=== PATIENT | male | born 1970 | race Caucasian/White ===

== ENCOUNTER → 2017-03-19 | Outpatient (CLI) | payer OTHER ==
[2017-03-19 10:50] LABS: COMPLEMENT C3 84.5 MG/DL (90-180); COMPLEMENT C4 19.4 MG/DL (10-40); IMMUNOGLOBULIN G 1130 MG/DL (681-1648); IMMUNOGLOBULIN M 106 MG/DL (40-230)
[2017-03-23 00:06] LABS: ALPHA 1 ANTITRYPSIN 117 mg/dL (90-200)
[2017-03-23 00:06] LABS: E001-IgE Cat Epith/Dander 0.11 kU/L (Class 0/I); E005-IgE Dog Dander 0.68 kU/L (Class II); F002-IgE Milk 0.12 kU/L (Class 0/I); F004-IgE Wheat 5.32 kU/L (Class IV); F013-IgE Peanut 0.49 kU/L (Class I); F014-IgE Soybean 1.81 kU/L (Class III); F027-IgE Beef 0.23 kU/L (Class 0/I); F245-IgE Egg, Whole < 0.10 kU/L (Class 0); FX02-IgE Food Mix (Sea Foods) Positive (.); G008-IgE Kentucky Bluegrass 0.98 kU/L (Class II); M001-IgE Penicillium chrysogen < 0.10 kU/L (Class 0); M002 IgE Cladosporium herbaru 0.12 kU/L (Class 0/I); M003 IgE Aspergillus fumigatu 0.34 kU/L (Class I); M006-IgE Alternaria alternata 0.19 kU/L (Class 0/I); T001-IgE Maple/Box Elder 0.26 kU/L (Class 0/I); T003-IgE Common Silver Birch 0.21 kU/L (Class 0/I); T006-IgE Cedar, Mountain 4.91 kU/L (Class IV); T007-IgE Oak, White 0.42 kU/L (Class I); T008-IgE Elm, American 0.37 kU/L (Class I); T015-IgE Ash, White 0.45 kU/L (Class I); T041-IgE Hickory, White 0.16 kU/L (Class 0/I); T070-IgE White Mulberry 0.21 kU/L (Class 0/I); W001-IgE Ragweed, Short 0.76 kU/L (Class II); W009-IgE Plantain, English 1.07 kU/L (Class II); W014-IgE Pigweed, Rough 0.74 kU/L (Class II); W018-IgE Sheep Sorrel 0.53 kU/L (Class I)
== END ==
LOC: M LAB 09:28
DX: J30.1 Allergic rhinitis due to pollen (principal)

== ENCOUNTER → 2017-12-06 | Outpatient (CLI) | payer OTHER ==
[2017-12-06 12:00] LABS: BASO % 0.6 % (0.0-1.0); HEMATOCRIT 48.4 % (42.0-52.0); HEMOGLOBIN 16.6 g/dl (13.5-17.5); IMMATURE GRANULOCYTE % 0.6 % (0-3.0); LYMPH # 1.3 10^3/uL (1.5-4.5); LYMPH % 24.9 % (24.0-44.0); MEAN CORPUSCULAR HGB CONC 34.3 g/dl (32.0-36.5); MEAN CORPUSCULAR VOLUME 90.5 fl (80.0-96.0); MONO # 0.5 10^3/uL (0.0-0.8); MONO % 10.2 % (0.0-5.0); NEUTROPHILS # 3.4 10^3/uL (1.8-7.7); NEUTROPHILS % 63.7 % (36.0-66.0); PLATELET COUNT, AUTOMATED 281 10^3/uL (150-450); RED BLOOD COUNT 5.35 10^6/uL (4.30-6.10); RED CELL DISTRIBUTION WIDTH 11.8 % (11.5-14.5); WHITE BLOOD COUNT 5.3 10^3/uL (4.0-10.0)
[2017-12-06 12:09] LABS: ALBUMIN 3.9 GM/DL (3.2-5.2); ALBUMIN/GLOBULIN RATIO 1.08 (1.00-1.93); ALKALINE PHOSPHATASE 73 U/L (45-117); ALT/SGPT 63 U/L (12-78); ANION GAP 6 MEQ/L (8-16); AST/SGOT 30 U/L (7-37); BILIRUBIN,TOTAL 0.4 MG/DL (0.2-1.0); BLOOD UREA NITROGEN 25 MG/DL (7-18); CALCIUM LEVEL 8.8 MG/DL (8.5-10.1); CARBON DIOXIDE LEVEL 29 MEQ/L (21-32); CHLORIDE LEVEL 104 MEQ/L (98-107); CREATININE FOR GFR 1.06 MG/DL (0.70-1.30); GLOMERULAR FILTRATION RATE > 60.0 (>60); GLUCOSE, FASTING 78 MG/DL (70-100); POTASSIUM SERUM 4.9 MEQ/L (3.5-5.1); SODIUM LEVEL 139 MEQ/L (136-145); TOTAL PROTEIN 7.5 GM/DL (6.4-8.2)
== END ==
LOC: M WUC 09:26
DX: L03.211 Cellulitis of face (principal)
CPT/HCPCS: 80053

== ENCOUNTER → 2020-01-27 | Outpatient (CLI) | payer SELFPAY | LOC: M LABSMTC 18:52 | PROVIDERS: ATTEND Pediatrics | DX: Z11.59 Encounter for screening for other viral diseases (principal) ==

== ENCOUNTER → 2020-03-30 | Outpatient (CLI) | payer SELFPAY | LOC: M LABSMTC 09:47 | PROVIDERS: ATTEND Pediatrics | DX: Z11.52 Encounter for screening for COVID-19 (principal) ==